=== PATIENT | female | born 1950 | race Two or more races ===

== ENCOUNTER → 2021-12-20 | Outpatient (CLI) | payer MEDICARE | END | disposition home or self-care (01) | LOC: LAB 08:57 | PROVIDERS: ATTEND Obstetrics & Gynecology | DX: R97.1 Elevated cancer antigen 125 [CA 125] (principal); R10.9 Unspecified abdominal pain | CPT/HCPCS: 86304 ==

== ENCOUNTER → 2021-12-26 | Outpatient (CLI) | payer MEDICARE | END | disposition home or self-care (01) | LOC: LAB 08:43 | PROVIDERS: ATTEND Obstetrics & Gynecology | DX: N85.00 Endometrial hyperplasia, unspecified (principal); N72 Inflammatory disease of cervix uteri ==